=== PATIENT | male | born 1995 | race African-American/Black ===

== ENCOUNTER 2019-06-03 11:50 | Emergency (ER) | payer OTHER ==
[~2019-06-03] VITALS: Ht 177.8 cm; Wt 72.6 kg
--- NOTE | 2019-06-03 12:59 | PHYS DOC ---
Past Medical History Past Medical History: No Pertinent History Past Surgical History: No Surgical History Alcohol Use: Occasionally Drug Use: Marijuana Adult General Chief Complaint Chief Complaint: SHOULDER INJURY HPI HPI Patient is a 23 year old right-handed male patient without history of medical problem who presents with complaint of left shoulder dislocation. Patient states he woke up around midnight and his shoulder was out of the place and he was not able to put it back in the place. Rated his pain 8/10 and states she had 2 other episodes of shoulder dislocation previously. Patient denies focal neuro deficit and other injuries. Patient admitted to drink alcohol last night or this morning. Review of Systems Review of Systems Constitutional: Denies fever or chills [] Eyes: Denies change in visual acuity, redness, or eye pain [] HENT: Denies nasal congestion or sore throat [] Respiratory: Denies cough or shortness of breath [] Cardiovascular: No additional information not addressed in HPI [] GI: Denies abdominal pain, nausea, vomiting, bloody stools or diarrhea [] : Denies dysuria or hematuria [] Musculoskeletal: Denies back pain, reports joint pain [] Integument: Denies rash or skin lesions [] Neurologic: Denies headache, focal weakness or sensory changes [] Endocrine: Denies polyuria or polydipsia [] All other systems were reviewed and found to be within normal limits, except as documented in this note. Current Medications Current Medications Current Medications Medications (Trade) Dose Ordered Sig/Get Start Time Stop Time Status Last Admin Dose Admin Fentanyl Citrate (Fentanyl 2ml Vial) 50 mcg 1X ONCE 06/03/19 13:15 06/03/19 13:16 DC Ondansetron HCl (Zofran) 4 mg 1X ONCE 06/03/19 13:00 06/03/19 13:01 DC 06/03/19 13:12 4 MG Propofol (Diprivan) 200 mg 1X ONCE 06/03/19 13:15 06/03/19 13:16 DC Sodium Chloride 1,000 ml @ 125 mls/hr 1X ONCE 06/03/19 13:15 06/03/19 21:14 06/03/19 13:15 125 MLS/HR Allergies Allergies Allergies Coded Allergies Type Severity Reaction Last Updated Verified No Known Drug Allergies 11/19/14 No Physical Exam Physical Exam Constitutional: Well developed, well nourished, mild distress, non-toxic appearance. [] HENT: Normocephalic, atraumatic. Eyes: PERRLA, EOMI, conjunctiva normal, no discharge. [] Neck: Normal range of motion, no tenderness, supple, no stridor. [] Cardiovascular:Heart rate regular rhythm, no murmur [] Lungs & Thorax: Bilateral breath sounds clear to auscultation [] Abdomen: Bowel sounds normal, soft, no tenderness, no masses, no pulsatile mass es. [] Skin: Warm, dry, no erythema, no rash. [] Back: No tenderness, no CVA tenderness. [] Extremities: Left shoulder is holding in internal rotation, deformity with dislocation of left shoulder Neurologic: Alert and oriented X 3, no focal deficits noted. [] Psychologic: Affect normal, judgement normal, mood normal. [] Current Patient Data Vital Signs Vital Signs Date Time Temp Pulse Resp B/P (MAP) Pulse Ox O2 Delivery O2 Flow Rate FiO2 06/03/19 13:41 64 110/71 (84) 99 Room Air 06/03/19 13:13 18 06/03/19 12:46 98.3 98.3 EKG EKG [] Radiology/Procedures Radiology/Procedures [][address] [id number] IMAGING REPORT Signed PATIENT: ENEDINA CASTANO: [id number] : 1995 LOCATION: ER AGE: 23 SEX: M EXAM STATUS: REG ER ORD. PHYSICIAN: ELANA POSEY MD REASON: possible dislocation PROCEDURE: SHOULDER 2+V LEFT Left shoulder 3 views. HISTORY: Pain, possible dislocation 3 views were taken left shoulder. There is an anterior dislocation of the shoulder. A definite fracture is not identified. IMPRESSION: 1. Anterior dislocation left shoulder. Electronically signed by: Amilcar Craft MD (06/03/2019 1:22 PM) [id number] DICTATED and SIGNED BY: AMILCAR CRAFT MD DATE: 06/03/[address] [place] [id number] IMAGING REPORT Signed PATIENT: ENEDINA CASTANO LACCOUNT: [id number] : 1995 LOCATION: ER AGE: 23 SEX: M EXAM STATUS: REG ER ORD. PHYSICIAN: ELANA POSEY MD REASON: post spontaneous reduction PROCEDURE: SHOULDER 2+V LEFT EXAM: Left shoulder, 3 views. HISTORY: Reduction. COMPARISON: 06/03/2019 FINDINGS: 3 views of the left shoulder obtained. There has been reduction of the left shoulder into anatomic alignment. There is chronic appearing deformity of the humeral head which may be due to an old Hill-Sachs fracture. IMPRESSION: Closed reduction of the left shoulder into anatomic alignment. There is deformity of the humeral head which may be due to an old Hill-Sachs lesion. This does not appear to be acute. Electronically signed by: Maura Trinh MD (06/03/2019 2:53 PM) [facility] DICTATED and SIGNED BY: MAURA TRINH MD DATE: 06/03/19 1453 Course & Med Decision Making Course & Med Decision Making Pertinent Imaging studies reviewed. (See chart for details) Evaluation of patient in ER showed 23-year-old male patient with recurrent left shoulder dislocation that reduced spontaneously without any manipulation by me. Shoulder immobilizer was applied and patient was advised to follow-up with suction worker orthopedic physician. I've spoken with the patient and/or caregivers. I've explained the patient's condition, diagnosis and treatment plan based on information available to me at this time. I've answered the patient's and/or caregivers questions and addressed any concerns. The patient and/or caregivers have a good understanding the patient's diagnosis, condition and treatment plan as can be expected at this point. Vital signs have been stabilized. The patient's condition is stable for discharge from the emergency department. The patient will pursue further outpatient evaluation with her primary care provider or other designated consulting physician as outlined in the discharge instructions. Patient and/or caregivers are agreeable to this plan of care and follow-up instructions have been explained in detail. The patient and/or caregivers have received these instructions in written format and expressed understanding of these discharge instructions. The patient and her caregivers are aware that if any significant change in condition or worsening of symptoms should prompt him to immediately return to this of the closest emergency department. If an emergent department is not readily available I would encourage him to call 911. Placido Disclaimer Dragon Disclaimer This electronic medical record was generated, in whole or in part, using a voice recognition dictation system. Departure Departure Impression: Primary Impression: Recurrent dislocation, left shoulder Disposition: HOME, SELF-CARE (at 1449) Condition: IMPROVED Referrals: NO PCP (PCP) VIBHA NEWBY MD Patient Instructions: Shoulder Dislocation Additional Instructions: Use shoulder immobilizer Follow-up with suction worker orthopedic physician in 2 or 3 days Return to ER if not getting better Scripts Naproxen (NAPROSYN) 500 Mg Tablet 1 TAB PO BID for pain, #20 TAB Prov: ELANA POSEY MD 06/03/19 ELANA POSEY MD Jun 03, 2019 12:59
[2019-06-03] MEDS: ONDANSETRON PF 4 MG/2 ML VIAL. IV ONE (13:12)
[2019-06-03] MEDS: fentaNYL PF VIAL 100 MCG/2 ML VIAL IVP ONE ×2 (13:13→13:15)
[2019-06-03] MEDS: PROPOFOL 10 MG/ML (20ML) VIAL. IV ONE (13:15)
[2019-06-03] MEDS: IV NORMAL SALINE 1000ML BAG 1,000 ML IV ONE (13:15)
--- NOTE | 2019-06-03 13:25 | RAD ---
Left shoulder 3 views. HISTORY: Pain, possible dislocation 3 views were taken left shoulder. There is an anterior dislocation of the shoulder. A definite fracture is not identified. IMPRESSION: 1. Anterior dislocation left shoulder. Electronically signed by: Amilcar Craft MD (06/03/2019 1:22 PM) [id number]
[2019-06-03 14:11] VITALS: BP 150/92
[2019-06-03] MEDS ORDERED: NAPR-683 PO (14:51)
--- NOTE | 2019-06-03 14:56 | RAD ---
EXAM: Left shoulder, 3 views. HISTORY: Reduction. COMPARISON: 06/03/2019 FINDINGS: 3 views of the left shoulder obtained. There has been reduction of the left shoulder into anatomic alignment. There is chronic appearing deformity of the humeral head which may be due to an old Hill-Sachs fracture. IMPRESSION: Closed reduction of the left shoulder into anatomic alignment. There is deformity of the humeral head which may be due to an old Hill-Sachs lesion. This does not appear to be acute. Electronically signed by: Maura Hicks MD (06/03/2019 2:53 PM) [facility] [place]
== END 2019-06-03 15:04 | disposition home or self-care (01) ==
LOC: ER 11:50
DX: M24.412 Recurrent dislocation, left shoulder (principal)
CPT/HCPCS: 29105; 73030; 96374; 96375; 99285; J2405; J3010; J7030

== ENCOUNTER → 2019-07-27 | Outpatient (CLI) | payer OTHER ==
[~2019-07-27] MED LIST: NAPR-683 PO
--- NOTE | 2019-07-27 10:29 | KCIC ---
MRI study of the left shoulder without contrast Clinical indications: Left shoulder pain. History of multiple dislocations. Limited range of motion. TECHNIQUE: Noncontrast MRI sequences of the left shoulder were performed in all 3 planes. FINDINGS: There is increased signal within the supraspinatus tendon and infraspinatus tendon of the rotator cuff consistent with tendinosis. Subscapularis tendon is intact. No complete rotator cuff tear is seen. The tendon of the long head of the biceps is intact. No muscle atrophy is seen. There is mild degenerative osteoarthritis and spurring of the AC joint. Type III acromial process is seen. These findings may impinge the acromial humeral space. Mild chronic cystic change of the posterior lateral aspect humeral head is seen secondary to chronic impingement. No marrow infiltrative process or fracture is seen otherwise. There is mild degenerative spurring of the glenohumeral joint. No significant glenohumeral joint effusion is seen. Chondromalacia is seen. No loose body is evident. There is increased signal and irregularity of the posterior and superior aspects of the glenoid labrum. Nondisplaced tear is possible here. No paralabral ganglion cyst or spinoglenoid notch ganglion cyst is seen. IMPRESSION: Tendinosis of the rotator cuff. No complete rotator cuff tear is seen. Impingement of the acromial humeral space. No subdeltoid or subacromial bursitis is seen. 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 Chondromalacia of the glenohumeral joint. There is degenerative signal abnormality and irregularity of the posterior superior aspect of the glenoid labrum. A nondisplaced labral tear is possible here. No paralabral ganglion cyst is seen. Electronically signed by: Emory Tesfaye MD (07/27/2019 10:26 AM) [id number]
== END ==
LOC: KCIC MRI 08:29
PROVIDERS: ATTEND Orthopaedic Surgery
DX: M19.012 Primary osteoarthritis, left shoulder (principal); M94.212 Chondromalacia, left shoulder; M75.82 Other shoulder lesions, left shoulder; M24.412 Recurrent dislocation, left shoulder
CPT/HCPCS: 73221